=== PATIENT | female | born 1990 | race Caucasian/White ===

== ENCOUNTER 2017-09-27 09:35 | Emergency (ER) | payer MEDICAID, OTHER ==
[~2017-09-27] VITALS: Ht 157.5 cm; Wt 75.0 kg
[~2017-09-27 09:35] MED LIST: ALPR-138 PO; BENA25TA8 PO; CLAR10TA7 OR; DIPH25 PO; ENOX40P SQ; LACT20SO4 PO; LEXA10TA PO; LORT5TAB PO; METO10TA PO; METO25 PO; MUCI600T PO; NYSTT TOP; PREV30CA36 PO; SENN1TAB11 PO; TRAZ100T50 PO
[2017-09-27 11:22] VITALS: BP 118/75; PULSE 72; RESP 16; TEMP 98.2; O2SAT 100
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
[2017-09-27] MEDS ORDERED: METH4PAK PO (12:10)
[2017-09-27] MEDS ORDERED: CITA20TA4 PO (12:10)
[2017-09-27] MEDS ORDERED: ALBUAER3 INH (12:10)
[2017-09-27] MEDS ORDERED: HYDR50CA PO (12:10)
[2017-09-27] MEDS ORDERED: TRAZ1TAB14 PO (12:10)
--- NOTE | 2017-09-27 12:27 | RADRPT ---
EXAM DATE/TIME: 09/27/2017 12:04 [place] COMPARISON: No previous studies available for comparison. INDICATIONS : Abdominal pain in umbilical region. MEDICAL HISTORY : Hernia. SURGICAL HISTORY : Colonoscopy. ENCOUNTER: Initial ACUITY: 3 days PAIN SCORE: 2/10 LOCATION: abdomen FINDINGS: Supine and upright views of the abdomen were performed. The abdominal bowel gas pattern is normal. No air fluid levels are seen. No abnormal masses, calcifications, or organomegaly is seen. The visu alized lower lungs are clear. No evidence of free intraperitoneal gas. The osseous structures are u nremarkable. CONCLUSION: Normal examination. Jovanni Albarran MD on September 27, 2017 at 12:26 Board Certified Radiologist. This report was verified electronically.
== END 2017-09-27 14:00 | disposition home or self-care (01) ==
LOC: NEPD 09:35
DX: R85.9 Unspecified abnormal finding in specimens from digestive organs and abdominal cavity (principal); R16.0 Hepatomegaly, not elsewhere classified; M19.90 Unspecified osteoarthritis, unspecified site; F32.9 Major depressive disorder, single episode, unspecified; E05.90 Thyrotoxicosis, unspecified without thyrotoxic crisis or storm; F17.200 Nicotine dependence, unspecified, uncomplicated; Z87.820 Personal history of traumatic brain injury
CPT/HCPCS: 74020; 99283